=== PATIENT | male | born 1980 ===

== ENCOUNTER 2018-06-10 04:42 | Emergency (ER) | payer OTHER ==
[2018-06-10 05:13] LABS: Basophils % (Auto) 0.9 % (0.0-1.8); Eosinophils % (Auto) 0.8 % (0.0-4.3); Hematocrit 36.8 % (35.5-45.6); Hemoglobin 12.2 gm/dl (11.8-15.2); Lymphocytes # (Auto) 1.4 K/mm3 (1.2-5.4); Lymphocytes % (Auto) 35.1 % (13.4-35.0); Mean Corpuscular HGB Conc 33 % (32-34); Monocytes # (Auto) 0.3 K/mm3 (0.0-0.8); Monocytes % (Auto) 8.8 % (0.0-7.3); Platelet Count 253 K/mm3 (140-440); Red Blood Count 5.36 M/mm3 (3.65-5.03); Red Cell Distribution Width 16.9 % (13.2-15.2)
[2018-06-10 05:28] LABS: Alanine Aminotransferase 17 units/L (7-56); Albumin 3.7 g/dL (3.9-5); BUN/Creatinine Ratio 21; Blood Urea Nitrogen 15 mg/dL (9-20); Calcium 9.2 mg/dL (8.4-10.2); Hemolysis Index 5
[2018-06-10 05:38] VITALS: BP 131/82
[2018-06-10 05:39] LABS: Mean Corpuscular Volume 69 fl (84-94)
[2018-06-10] MEDS ORDERED: LEVAQUIN PO ONE (06:16)
[2018-06-10] MEDS ORDERED: IMODIUM PO ONE (06:16)
--- NOTE | 2018-06-10 06:28 | Emergency Department Report ---
ED Abdominal Pain HPI - General Chief Complaint: Abdominal Pain Stated Complaint: ABD PAIN Time Seen by Provider: 06/10/18 06:11 Source: patient Mode of arrival: Ambulatory Limitations: No Limitations - History of Present Illness Initial Comments: Mr. Love is a 38 yo male with hx of HIV who is has been without HAART for 2 years. He presents with abdominal cramping and diarrhea for 3-4 days. Has been treating himself with oral hydration and imodium. MIld intermittent cramping. 3-4 stools per day. MD Complaint: abdominal pain -: Gradual, days(s) (3-4) Location: diffuse Radiation: none Severity: mild Severity scale (0 -10): 6 Quality: cramping Consistency: intermittent Improves With: nothing Worsens With: nothing Associated Symptoms: denies other symptoms - Related Data Previous Rx's Medication Instructions Recorded Last Taken Type Ciprofloxacin HCl [Cipro] 500 mg PO BID #6 tablet 06/10/18 Unknown Rx Loperamide [Imodium] 2 tab PO QID 2 Days #16 capsule 06/10/18 Unknown Rx Allergies Allergy/AdvReac Type Severity Reaction Status Date / Time No Known Allergies Allergy Unverified 06/10/18 04:44 ED Review of Systems ROS: Stated complaint: ABD PAIN Other details as noted in HPI Comment: All other systems reviewed and negative Constitutional: denies: fever, malaise Cardiovascular: denies: chest pain Gastrointestinal: abdominal pain, diarrhea ED Past Medical Hx - Past Medical History Previous Medical History?: Yes Hx HIV: Yes - Surgical History Past Surgical History?: No - Social History Smoking Status: Current Every Day Smoker Substance Use Type: None - Medications Home Medications: Home Medications Medication Instructions Recorded Confirmed Last Taken Type Ciprofloxacin HCl [Cipro] 500 mg PO BID #6 tablet 06/10/18 Unknown Rx Loperamide [Imodium] 2 tab PO QID 2 Days #16 capsule 06/10/18 Unknown Rx ED Physical Exam - General Limitations: No Limitations General appearance: alert, in no apparent distress - Head Head exam: Present: atraumatic, normocephalic - Eye Eye exam: Present: normal appearance - ENT ENT exam: Present: mucous membranes moist - Neck Neck exam: Present: normal inspection, full ROM - Respiratory Respiratory exam: Present: normal lung sounds bilaterally. Absent: respiratory distress, wheezes, rales, rhonchi - Cardiovascular Cardiovascular Exam: Present: regular rate, normal rhythm, normal heart sounds. Absent: systolic murmur, diastolic murmur, rubs, gallop - GI/Abdominal GI/Abdominal exam: Present: soft, normal bowel sounds. Absent: distended, tenderness, guarding, rebound - Rectal Rectal exam: Present: deferred - Extremities Exam Extremities exam: Present: normal inspection - Back Exam Back exam: Present: normal inspection - Neurological Exam Neurological exam: Present: alert, oriented X3 - Psychiatric Psychiatric exam: Present: normal affect, normal mood - Skin Skin exam: Present: warm, dry, intact, normal color. Absent: rash ED Course Vital Signs 06/10/18 06/10/18 04:45 06:06 Temperature 98.3 F Pulse Rate 98 H Respiratory 18 20 Rate Blood Pressure 131/82 O2 Sat by Pulse 100 98 Oximetry ED Medical Decision Making - Lab Data Result diagrams: 06/10/18 04:55 06/10/18 04:55 - Medical Decision Making Mr. Love is a 38 yo male who appears well. Nontoxic. NO evidence of peritonitis. Apperas well hydrated. Rx: ciprofloxacin and loperamide Critical care attestation.: If time is entered above; I have spent that time in minutes in the direct care of this critically ill patient, excluding procedure time. ED Disposition Clinical Impression: Abdominal pain, Diarrhea, HIV (human immunodeficiency virus infection) Disposition: -01 TO HOME OR SELFCARE Is pt being admited?: No Does the pt Need Aspirin: No Condition: Stable Instructions: Acute Abdominal Pain (ED), Acute Diarrhea (ED) Prescriptions: Ciprofloxacin HCl [Cipro] 500 mg PO BID #6 tablet Loperamide [Imodium] 2 tab PO QID 2 Days #16 capsule Referrals: JUAN YU MD [Primary Care Provider] - 3-5 Days
== END 2018-06-10 07:10 | disposition home or self-care (01) ==
LOC: ED 04:42
DX: R10.84 Generalized abdominal pain (principal); R19.7 Diarrhea, unspecified; B20 Human immunodeficiency virus [HIV] disease; F17.200 Nicotine dependence, unspecified, uncomplicated
CPT/HCPCS: 36415; 80053; 85025